=== PATIENT | male | born 1980 | race Caucasian/White ===

== ENCOUNTER 2016-10-02 10:30 | Emergency (ER) | payer OTHER ==
[2016-10-02 11:46] VITALS: BP 116/69
--- NOTE | 2016-10-02 12:00 | UC ---
Respiratory Complaint HPI - HPI Summary HPI Summary: COUGH / CHEST CONGESTION X 2 WEEKS, + NASAL CONGESTION, SOB NO FEVER, NO CHILLS - History of Current Complaint Chief Complaint: UCRespiratory Stated Complaint: RESPIRATORY COMPLAINT Time Seen by Provider: 10/02/16 11:40 Hx Obtained From: Patient Onset/Duration: Gradual Onset, Lasting Weeks - 2, Still Present Timing: Constant Severity Initially: Moderate Severity Currently: Moderate Character: Cough: Nonproductive Aggravating Factors: Exertion, Deep Breaths Alleviating Factors: Bronchodilator Associated Signs And Symptoms: Positive: Wheezing, URI, Nasal Congestion. Negative: Fever, Chills - Allergies/Home Medications Allergies/Adverse Reactions: Allergies Allergy/AdvReac Type Severity Reaction Status Date / Time Ciprofloxacin [From Cipro] Allergy Numbness Verified 10/02/16 11:46 And Tingling Sulfamethoxazole Allergy See Comment Verified 10/02/16 11:46 w/Trimethoprim [From Bactrim] PMH/Surg Hx/FS Hx/Imm Hx Previously Healthy: Yes - Surgical History Surgical History: None - Family History Known Family History: Positive: Hypertension - Social History Alcohol Use: Rare Substance Use Type: None Smoking Status (MU): Never Smoked Tobacco Review of Systems Constitutional: Negative Skin: Negative Eyes: Negative ENT: Nasal Discharge Respiratory: Shortness Of Breath, Cough Cardiovascular: Negative Gastrointestinal: Negative All Other Systems Reviewed And Are Negative: Yes Physical Exam Triage Information Reviewed: Yes Appearance: Well-Appearing, No Pain Distress, Well-Nourished Vital Signs: Initial Vital Signs Temp 98.8 F 10/02/16 11:44 Pulse 114 10/02/16 11:44 Resp 16 10/02/16 11:44 BP 116/69 10/02/16 11:44 Pulse Ox 98 10/02/16 11:44 Vital Signs Reviewed: Yes Eye Exam: Normal Eyes: Positive: Conjunctiva Clear ENT Exam: Normal ENT: Positive: Normal ENT inspection, Hearing grossly normal, Pharynx normal, Nasal congestion, Nasal drainage, TMs normal Neck exam: Normal Neck: Positive: Supple, Nontender, No Lymphadenopathy Respiratory: Positive: Chest non-tender, Lungs clear, Normal breath sounds Cardiovascular: Positive: RRR, No Murmur, Pulses Normal UC Diagnostic Evaluation - Laboratory O2 Sat by Pulse Oximetry: 98 Respiratory Course/Dx - Differential Dx/Diagnosis Provider Diagnoses: URI Discharge - Discharge Plan Condition: Stable Disposition: HOME Patient Education Materials: Upper Respiratory Infection (ED) Forms: *Work Release Referrals: Shiloh Joe MD [Primary Care Provider] - 7 Days
== END 2016-10-02 12:32 | disposition home or self-care (01) ==
LOC: UCCORT 10:30
DX: J06.9 Acute upper respiratory infection, unspecified (principal); R09.81 Nasal congestion; R06.2 Wheezing; Z88.2 Allergy status to sulfonamides; Z88.1 Allergy status to other antibiotic agents
CPT/HCPCS: 99211; G0463

== ENCOUNTER 2017-02-13 19:16 | Emergency (ER) | payer OTHER ==
[2017-02-13 20:16] VITALS: BP 111/76
--- NOTE | 2017-02-13 20:31 | UC ---
Respiratory Complaint HPI - HPI Summary HPI Summary: patient has hx of asthma, has been having SOB and cough for the past 3 days. - History of Current Complaint Chief Complaint: UCGeneralIllness Stated Complaint: COUGH/LOW GRADE FEVER Time Seen by Provider: 02/13/17 20:17 Hx Obtained From: Patient Onset/Duration: Sudden Onset, Lasting Days Timing: Constant Severity Initially: Mild Severity Currently: Moderate Aggravating Factors: Exertion, Deep Breaths, Recumbent Position Alleviating Factors: Nothing Associated Signs And Symptoms: Positive: Dyspnea, Fever, Wheezing, Nasal Congestion, Sinus Discomfort - Risk Factors Pulmonary Embolism Risk Factors: Negative Cardiac Risk Factors: Negative Pseudomonas Risk Factors: Negative - Allergies/Home Medications Allergies/Adverse Reactions: Allergies Allergy/AdvReac Type Severity Reaction Status Date / Time Ciprofloxacin [From Cipro] Allergy Numbness Verified 02/13/17 20:10 And Tingling Sulfamethoxazole Allergy See Comment Verified 02/13/17 20:10 w/Trimethoprim [From Bactrim] PMH/Surg Hx/FS Hx/Imm Hx Previously Healthy: Yes - Surgical History Surgical History: None - Family History Known Family History: Positive: Hypertension - Social History Alcohol Use: Rare Substance Use Type: None Smoking Status (MU): Never Smoked Tobacco Review of Systems Constitutional: Fever, Fatigue Skin: Negative Eyes: Negative ENT: Negative, Nasal Discharge Respiratory: Shortness Of Breath, Cough Cardiovascular: Negative Gastrointestinal: Negative Genitourinary: Negative Motor: Negative Neurovascular: Negative Musculoskeletal: Negative Neurological: Negative Psychological: Negative All Other Systems Reviewed And Are Negative: Yes Physical Exam Triage Information Reviewed: Yes Appearance: Well-Nourished, Ill-Appearing, Pain Distress Vital Signs: Initial Vital Signs Temp 99.1 F 02/13/17 20:11 Pulse 103 02/13/17 20:11 Resp 16 02/13/17 20:11 BP 111/76 02/13/17 20:11 Pulse Ox 99 02/13/17 20:11 Vital Signs Reviewed: Yes Eye Exam: Normal Eyes: Positive: Conjunctiva Clear ENT: Positive: Hearing grossly normal, Pharynx normal, Nasal congestion, TM bulging Dental Exam: Normal Neck exam: Normal Neck: Positive: Supple, Nontender, No Lymphadenopathy Respiratory: Positive: Decreased breath sounds - URL, Wheezing, Inspiration Cardiovascular Exam: Normal Cardiovascular: Positive: RRR, No Murmur, Pulses Normal Abdominal Exam: Normal Abdomen Description: Positive: Nontender, No Organomegaly, Soft Bowel Sounds: Positive: Present Musculoskeletal Exam: Normal Musculoskeletal: Positive: Strength Intact, ROM Intact, No Edema Neurological Exam: Normal Neurological: Positive: Alert, Muscle Tone Normal Psychological Exam: Normal Skin Exam: Normal UC Diagnostic Evaluation - Laboratory O2 Sat by Pulse Oximetry: 99 Respiratory Course/Dx - Course Course Of Treatment: hx obtained, exam performed, meds reviewed, chest xray obtained. patient uses a daily inhaler and albuterol as needed. - Differential Dx/Diagnosis Differential Diagnosis/HQI/PQRI: Asthma, Bronchitis, Lower Resp Infection, Sinusitis Provider Diagnoses: bronchitis. asthma Discharge - Discharge Plan Condition: Stable Disposition: HOME Patient Education Materials: Acute Bronchitis (ED) Additional Instructions: 1. Take the medication as prescribed. 2. Increase your fluid intake and get plenty of rest. 3. Follow up with any increase in symptoms.
[2017-02-13] MEDS ORDERED: predniSONE TAB* 20 MG PO ONE (20:41)
--- NOTE | 2017-02-13 21:10 | RAD ---
Indication: Shortness of breath. 2 views of the chest including dual energy PA views demonstrate no mediastinal shift. Heart is of normal size and configuration. Lung rucker demonstrate no pleural fluid, pneumonia or pneumothorax. IMPRESSION: No active cardiopulmonary disease is noted.
== END 2017-02-13 21:35 | disposition home or self-care (01) ==
LOC: UCCORT 19:16
DX: J45.909 Unspecified asthma, uncomplicated (principal); R50.9 Fever, unspecified; R09.81 Nasal congestion; Z88.1 Allergy status to other antibiotic agents; Z88.2 Allergy status to sulfonamides
CPT/HCPCS: 71020; 99212; G0463; J7512

== ENCOUNTER 2017-11-19 17:17 | Emergency (ER) | payer OTHER | END 2017-11-19 19:39 | disposition left against medical advice (07) | LOC: UCCORT 17:17 | DX: R05 Cough (principal); R11.11 Vomiting without nausea; Z53.21 Procedure and treatment not carried out due to patient leaving prior to being seen by health care provider ==

== ENCOUNTER 2017-11-19 20:06 | Emergency (ER) | payer OTHER ==
[2017-11-19 21:22] VITALS: BP 111/63
[2017-11-19] MEDS ORDERED: Ondansetron ODT TAB* 4 MG PO ONE (21:59)
[2017-11-19] MEDS ORDERED: Oseltamivir CAP* 75 MG CAP PO ONE (22:00)
--- NOTE | 2017-11-19 22:09 | UC ---
UC General HPI - HPI Summary HPI Summary: pt is c/o cough, n/v, fever and bodyaches for a day. denies sob, cp, diarrhea and dysuria - History of Current Complaint Hx Obtained From: Patient, Family/Paraeducator Onset/Duration: Gradual Onset Timing: Constant Pain Intensity: 5 Associated Signs & Symptoms: Positive: Cough, Fever, Headache, Nausea, Vomiting. Negative: Abdominal Pain, Chest Pain, Diarrhea, Dysuria, SOB, Wheezing <Kayley Pagan - Last Filed: 11/19/17 22:24> <Zoraida Alanis - Last Filed: 11/20/17 06:56> - History of Current Complaint Chief Complaint: UCRespiratory Stated Complaint: COUGH/VOMITING Time Seen by Provider: 11/19/17 21:55 - Allergy/Home Medications Allergies/Adverse Reactions: Allergies Allergy/AdvReac Type Severity Reaction Status Date / Time ciprofloxacin [From Cipro] Allergy Numbness Verified 11/19/17 21:24 Sulfa (Sulfonamide Allergy See Comment Verified 11/19/17 21:24 Antibiotics) Home Medications: Home Medications Albuterol HFA INHALER* [Ventolin HFA Inhaler*] 1 puff INH Q4H PRN 11/19/17 [ History Confirmed 11/19/17] Tiotropium CAP.INH* [Spiriva CAP.INH*] 1 cap.inh INH DAILY 11/19/17 [History Confirmed 11/19/17] PMH/Surg Hx/FS Hx/Imm Hx Respiratory History: Asthma - Surgical History Surgical History: None - Family History Known Family History: Positive: Hypertension - Social History Lives: With Family Alcohol Use: Rare Substance Use Type: None Smoking Status (MU): Never Smoked Tobacco - Immunization History Vaccination Up to Date: Yes <Kayley Pagan - Last Filed: 11/19/17 22:24> Review of Systems Constitutional: Fever Respiratory: Cough Gastrointestinal: Vomiting, Nausea Musculoskeletal: Myalgia Neurological: Headache Is Patient Immunocompromised?: No All Other Systems Reviewed And Are Negative: Yes <Kayley Pagan - Last Filed: 11/19/17 22:24> Physical Exam Triage Information Reviewed: Yes Appearance: Ill-Appearing Vital Signs: Initial Vital Signs Temp 100.6 F 11/19/17 21:20 Pulse 117 11/19/17 21:20 Resp 18 11/19/17 21:20 BP 111/63 11/19/17 21:20 Pulse Ox 100 11/19/17 21:20 Vital Signs Reviewed: Yes Eye Exam: Normal ENT: Positive: Pharynx normal, TMs normal. Negative: Nasal congestion, Nasal drainage Neck: Positive: Supple, Nontender, No Lymphadenopathy Respiratory: Positive: Lungs clear, Normal breath sounds, No respiratory distress Cardiovascular: Positive: No Murmur, Pulses Normal, Tachycardia Abdomen Description: Positive: Nontender, No Organomegaly, Soft. Negative: Distended, Guarding Bowel Sounds: Positive: Hyperactive Neurological Exam: Normal Psychological Exam: Normal Skin Exam: Normal <Kayley Pagan - Last Filed: 11/19/17 22:24> Vital Signs: Initial Vital Signs Temp 100.6 F 11/19/17 21:20 Pulse 117 11/19/17 21:20 Resp 18 11/19/17 21:20 BP 111/63 11/19/17 21:20 Pulse Ox 100 11/19/17 21:20 <Zoraida Alanis - Last Filed: 11/20/17 06:56> Diagnostics - Laboratory Diagnostic Studies Completed/Ordered: Influenza A + <Kayley Pagan - Last Filed: 11/19/17 22:24> Re-Evaluation - Re-Evaluation First Eval Re-Evaluation Time: 22:12 - pt is taking po fluids with no vomiting here. <Kayley Pagan - Last Filed: 11/19/17 22:24> Course/Dx - Course Course Of Treatment: non toxic. Influenza A +. Tx zofran here for nausea. 1st dose tamiflu given. - Differential Dx - Multi-Symptom Provider Diagnoses: Influenza A <Kayley Pagan - Last Filed: 11/19/17 22:24> Discharge <Kayley Pagan - Last Filed: 11/19/17 22:24> <Zoraida Alanis - Last Filed: 11/20/17 06:56> - Discharge Plan Condition: Stable Disposition: HOME Prescriptions: Oseltamivir Phosphate [Tamiflu] 75 mg PO BID 5 Days #10 capsule Patient Education Materials: Influenza (ED) Forms: *Work Release Referrals: Shiloh Joe MD [Primary Care Provider] - 5 Days Attestation Statement User Type: Provider - I was available for consult. This patient was seen by the DARLENE. The patient was not presented to, seen by, or examined by me. Cedric <Zoraida Alanis - Last Filed: 11/20/17 06:56>
== END 2017-11-19 22:16 | disposition home or self-care (01) ==
LOC: UCCORT 20:06
DX: J10.1 Influenza due to other identified influenza virus with other respiratory manifestations (principal); J45.909 Unspecified asthma, uncomplicated
CPT/HCPCS: 87502; 99212; A9270-GY; G0463

== ENCOUNTER 2017-12-26 07:58 | Emergency (ER) | payer OTHER ==
--- NOTE | 2017-12-26 08:08 | UC ---
Upper Extremity HPI - HPI Summary HPI Summary: 37 year old male with elbow pain. Right elbow pain onset last night radiates to forearm; increased pain with ROM. Numbness in fingers 3,4,5. No injury but pt has job that requires repetitive motion; also pt has been doing wood working with pallets (6) last few days. pain starts at elbow , radiates in to the hand. apin with movement. no trauma. no weakness. no previous Surgery. no shoulder or neck pain [ End ] - History of Current Complaint Stated Complaint: ELBOW PAIN Time Seen by Provider: 12/26/17 08:07 Hx Obtained From: Patient Onset/Duration: Gradual Onset Severity Initially: Mild Severity Currently: Moderate Aggravating Factor(s): Movement Alleviating Factor(s): Rest Associated Signs And Symptoms: Positive: Numbness/Tingling Related History: Similar Episode/Dx As - Allergies/Home Medications Allergies/Adverse Reactions: Allergies Allergy/AdvReac Type Severity Reaction Status Date / Time ciprofloxacin [From Cipro] Allergy Numbness Verified 12/26/17 08:17 Sulfa (Sulfonamide Allergy See Comment Verified 12/26/17 08:17 Antibiotics) Home Medications: Home Medications Acetaminophen [Tylenol Extra Strength] 1,000 mg PO ONCE PRN 12/26/17 [History Confirmed 12/26/17] PMH/Surg Hx/FS Hx/Imm Hx Previously Healthy: Yes - Surgical History Surgical History: None - Family History Known Family History: Positive: Hypertension, Other - mom with carpal tunnel - Social History Occupation: Employed Full-time Lives: With Family Alcohol Use: Rare Substance Use Type: None Smoking Status (MU): Never Smoked Tobacco - Immunization History Vaccination Up to Date: Yes Review of Systems Musculoskeletal: Arthralgia, Decreased ROM Is Patient Immunocompromised?: No All Other Systems Reviewed And Are Negative: Yes Physical Exam Triage Information Reviewed: Yes Appearance: Well-Appearing, No Pain Distress, Well-Nourished Vital Signs Reviewed: Yes Eyes: Positive: Conjunctiva Clear ENT: Positive: Normal ENT inspection Respiratory Exam: Normal Cardiovascular Exam: Normal Musculoskeletal: Positive: ROM Limited @ - pain at elbow with movement / extension . can move just uncomfortable. strength 5/5, sensation intact. tenderness to right elbow diffusely , medial and lateral elbow. mild swelling present. skin intact. no bruising. no redness. wrist movement normal but causes elbow tenderness. shoulder exam shows no abnormality Upper Extremity Course/Dx - Course Course Of Treatment: avoid repetitive motion. use cock up wrist splint and tennis elbow brace. start medrol and if sx persist or worsen go to ED or Ortho he is agreeable to plan - Differential Dx/Diagnosis Differential Diagnosis/HQI/PQRI: Bursitis, Contusion, Fracture (Closed), Strain , Sprain Provider Diagnoses: right elbow / cubital tunnel sundrome Discharge - Sign-Out/Discharge Documenting (check all that apply): Discharge - Discharge Plan Condition: Good Disposition: HOME Prescriptions: methylPREDNISolone [Medrol Dosepak 4 MG*] 0 mg PO .SEE CARLY INSTRUCTION #1 tab Patient Education Materials: Cubital Tunnel Syndrome (ED) Referrals: Shiloh Joe MD [Primary Care Provider] - Jose George MD [Medical Doctor] - If Needed (Ortho referral if needed ) Additional Instructions: Consider Tennis elbow brace and night time cock up wrist splint. Please refrain from repetitive motion that irritates the arm - Billing Disposition and Condition Condition: GOOD Disposition: HOME
--- OUTSIDE RECORDS SUMMARY | 2017-12-26 08:13 | XMS REPORT ---
:1980 External Reference #:[id number] Author Organization [facility] Address [address], [address] [place] [address] Phone [phone] Care Team Providers Name Role Phone Shiloh Joe M.D. Care Team Information Base Brander Unavailable Shiloh Joe M.D. Primary Care Physician Unavailable Payers Type Date Identification Numbers Payment Provider Subscriber Commercial Policy Number: [id number] [facility] Bora Miranda PayID: [id number] [address] [place] [address] Problems Date Description Provider Status Onset: 04/12/2016 Gastroesophageal reflux disease Shiloh Joe M.D. Active Onset: 11/03/2015 Mild intermittent asthma, uncomplicated Shiloh Joe M.D. Active Onset: 11/03/2015 Joint pain Shiloh Joe M.D. 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 ADL's/IADL's Independent with all ADL's ETOH Use Drinks Alcoholic Beverages Rarely Smoking Patient has never smoked Daily Caffeine Patient consumes minimal amounts of caffeine 1-2 cups daily Allergies, Adverse Reactions, Alerts Date Description Reaction Status Severity Comments 11/03/2015 Bactrim SJS active 11/03/2015 Fentanyl Nausea and Vomiting active 11/24/2015 Cipro numbness in hands and face active 12/13/2015 Gabapentin Urticaria active 12/13/2015 Zoloft Contact dermatitis active 12/13/2015 Demerol Nausea and Vomiting active Medications Medication Date Status Form Strength Qnty SIG Indications Ordering Provider Famotidine 05/14 Active Tablets 40mg 30tab Take One K21.9 Shiloh Joe s Tablet By M.D. Mouth Every Day Ventolin HFA Active Aerosol 108(90Bas 18gm 1-2 puffs Shiloh Joe, / e) every 4-6 M.D. mcg/Act hours as needed Spiriva Active Aerosol 1.25mcg/A Inhale Two Unknown Respimat /0000 ct Puffs By Mouth Daily Famotidine 02/19 Hx Tablets 20mg 1 by mouth K21.9 Shiloh bid M.D. - 05/14 Azithromycin 02/19 Hx Tablets 250mg 6tabs 1 tab take 2 J20.9 Shiloh Mathur tabs x daily M.D. - days then 1 11/13 for 4 days /2017 Guaifenesin 02/19 Hx Tablets 400mg 30tab 1 tab by J20.9 Shiloh Mathur s mouth every M.D. - 6 hours as 11/13 needed /2017 Pulmicort 10/16 Hx Aerosol 90mcg/Act 1unit inhale one J45.30 Yazan Orlando s puff by MD - mouth twice 02/19 a day. Rinse mouth after use. Azithromycin 09/04 Hx Tablets 250mg 6tabs take 2 J06.9 Shiloh tablets by M.D. - mouth one 09/25 time for infection then take 1 tablet by mouth daily for 4 days for infection Prednisone 09/04 Hx Tablets 20mg 10tab take 2 J06.9 Shiloh s tablet by M.D. - mouth daily 09/25 for 5 days for acute asthma exacerbation Prednisone 02/12 Hx Tablets 20mg 10tab 1 by mouth M65.831 Deana s twice daily SANTIAGO PintoP - x 5 days 02/17 Meloxicam 11/24 Hx Tablets 7.5mg 30tab 1-2 tab by M25.50 Shiloh , s mouth every M.D. - day as 11/24 needed for pain Tramadol HCL 11/24 Hx Tablets 50mg 45tab take one M25.50 Shiloh s tablet by M.D. - mouth every 09/04 12 hours as needed for severe pain. Reference #: [id number] Naproxen 11/24 Hx Tablets 500mg 60tab 1 by mouth M25.50 Shiloh Tatyana, s twice a day M.D. - with food 09/04 prn pain Famotidine Hx Tablets 40mg 30tab 1 by mouth K21.9 Shiloh Tatyana, / s every day M.D. - 02/19 Naproxen Hx Tablets 500mg 60tab 1 by mouth Shiloh Mathurn, / s twice a day M.D. - with food 11/24 Adrenal Hx 1 po bid Unknown Support / - 02/19 Prednisone Hx Tablets 20mg Take Two Unknown /0000 Tablets By - Mouth Every Vital Signs Date Vital Result Comment 12/12/2017 BP Systolic 118 mmHg BP Diastolic 72 mmHg Heart Rate 124 /min Height 72 inches 6'0" Weight 192.00 lb BMI (Body Mass Index) 26.0 kg/m2 BSA (Body Surface Area) 2.09 m2 [place] body weight in kilograms 81 O2 % BldC Oximetry 97 % 11/13/2017 BP Systolic Sitting Left Arm 122 mmHg BP Diastolic Sitting Left Arm 72 mmHg Heart Rate 76 /min Respiratory Rate 18 /min Height 72 inches 6'0" Weight 198.38 lb BMI (Body Mass Index) 26.9 kg/m2 BSA (Body Surface Area) 2.12 m2 [place] body weight in kilograms 81 02/19/2017 BP Systolic Sitting Left Arm 118 mmHg BP Diastolic Sitting Left Arm 64 mmHg Body Temperature 97.1 F Heart Rate 82 /min Respiratory Rate 12 /min Height 72 inches 6'0" Weight 198.00 lb BMI (Body Mass Index) 26.9 kg/m2 BSA (Body Surface Area) 2.12 m2 [place] body weight in kilograms 81 O2 % BldC Oximetry 98 % 10/16/2016 BP Systolic Sitting Right Arm 130 mmHg BP Diastolic Sitting Right Arm 90 mmHg Heart Rate 108 /min Respiratory Rate 18 /min Height 72 inches 6'0" Weight 200.00 lb BMI (Body Mass Index) 27.1 kg/m2 BSA (Body Surface Area) 2.13 m2 [place] body weight in kilograms 81 O2 % BldC Oximetry 97 % 09/25/2016 BP Systolic Sitting Right Arm 118 mmHg BP Diastolic Sitting Right Arm 74 mmHg Body Temperature 98.2 F Heart Rate 110 /min Respiratory Rate 16 /min Height 72 inches 6'0" Weight 201.25 lb BMI (Body Mass Index) 27.3 kg/m2 BSA (Body Surface Area) 2.14 m2 09/04/2016 BP Systolic 118 mmHg BP Diastolic 88 mmHg Body Temperature 97.9 F Heart Rate 99 /min Respiratory Rate 16 /min Height 72 inches 6'0" Weight 201.00 lb BMI (Body Mass Index) 27.3 kg/m2 BSA (Body Surface Area) 2.14 m2 [place] body weight in kilograms 81 O2 % BldC Oximetry 99 % 04/12/2016 BP Systolic Sitting Left Arm 108 mmHg BP Diastolic Sitting Left Arm 62 mmHg Height 72 inches 6'0" Weight 191.00 lb BMI (Body Mass Index) 25.9 kg/m2 BSA (Body Surface Area) 2.09 m2 02/13/2016 BP Systolic 104 mmHg BP Diastolic 64 mmHg Height 72 inches 6'0" Weight 195.38 lb BMI (Body Mass Index) 26.5 kg/m2 BSA (Body Surface Area) 2.11 m2 01/04/2016 BP Systolic 140 mmHg BP Diastolic 80 mmHg Heart Rate 88 /min Respiratory Rate 21 /min Weight 188.38 lb 11/24/2015 BP Systolic 118 mmHg BP Diastolic 76 mmHg Height 72 inches 6'0" Weight 191.00 lb BMI (Body Mass Index) 25.9 kg/m2 BSA (Body Surface Area) 2.09 m2 11/03/2015 BP Systolic 124 mmHg BP Diastolic 76 mmHg Heart Rate 100 /min Respiratory Rate 18 /min Height 72 inches 6'0" Weight 193.25 lb BMI (Body Mass Index) 26.2 kg/m2 BSA (Body Surface Area) 2.10 m2 Results Test Date Test Result H/L Range Note Rapid Influenza A & 11/19/2017 Influenza A Molecular POSITIVE Negative 1 B Molecular Influenza B Molecular NEGATIVE Negative Allergens,Zone 1 10/16/2016 mRast Class (Text Only) (SEE NOTE) 2, 3 D Pteronyssinus <0.10 kU/L Class 0 2 D Farinae Mite <0.10 kU/L Class 0 2 Cat Hair/Dander <0.10 kU/L Class 0 2 Dog Hair/Dander <0.10 kU/L Class 0 2 Bluegrass,[place] <0.10 kU/L Class 0 2 Bermuda Grass <0.10 kU/L Class 0 2 Bahia Grass <0.10 kU/L Class 0 2 Cockroach,Argentine <0.10 kU/L Class 0 2 Penicillium Not <0.10 kU/L Class 0 2 Cladosporium Herbarum <0.10 kU/L Class 0 2 Apergillis Fumigatus Ige <0.10 kU/L Class 0 2 Mucor Racemosus <0.10 kU/L Class 0 2 Alternaria Alternata <0.10 kU/L Class 0 2 Stemphylium Bot <0.10 kU/L Class 0 2 Birch,White <0.10 kU/L Class 0 2 Sa[place]bury,White <0.10 kU/L Class 0 2 Elm,Argentine (White) <0.10 kU/L Class 0 2 Eliezer,White <0.10 kU/L Class 0 2 Hazelnut Tree T004 Ige <0.10 kU/L Class 0 2 Mcintosh,White <0.10 kU/L Class 0 2 Divernon,White <0.10 kU/L Class 0 2 Fair [place]aks,[place]ountain <0.10 kU/L Class 0 2 Ragweed,Short/ <0.10 kU/L Class 0 2 Mugwort <0.10 kU/L Class 0 2 Plantain,Nepalese <0.10 kU/L Class 0 2 Pigweed,Rough <0.10 kU/L Class 0 2 Sheep [place] (DO <0.10 kU/L Class 0 2 Nettle <0.10 kU/L Class 0 2 Maple/[place] Ige T001 <0.10 kU/L Class 0 2, 4 Laboratory test finding 10/16/2016 Immunoglobulin E,Total 76 IU/mL 0-100 2, 5 CBS W/Automated Diff 10/16/2016 White Blood Count 8.8 K/uL 3.4-10.5 2 Red Blood Count 5.59 M/uL 4.20-5.80 2 Hemoglobin 16.0 gm/dL 12.8-17.0 2 Hematocrit 46.8 % 38.0-48.0 2 Mean Cell Volume 83.7 fl 80.0-96.0 2 Mean Corpuscular HGB 28.6 pg 27.0-33.0 2 Mean Corpuscular HGB Conc 34.2 g/dL 31.7-36.0 2 Platelet Count 292 K/uL 150-400 2 Red Cell Distri Width SD 39.9 fl 36-51 2 Red Cell Distri Width %CV 13.0 % 11.6-15.8 2 Mean Platelet Volume 12.4 fL High 6.6-10.6 2 Neut% 63.7 % 33.0-73.0 2 Lymph % 26.2 % 20.0-42.0 2 Gray % 6.2 % 0.0-10.0 2 Eo% 3.1 % 0.0-5.0 2 Bas% 0.8 % 0.1-1.0 2 Neut# 5.62 K/uL 1.8-7.0 2 Lymph # 2.31 K/uL 1.0-4.0 2 Gray # 0.55 K/uL 0.0-0.8 2 Eos # 0.27 K/uL 0.0-0.5 2 Baso # 0.07 K/uL Low 0.1-0.2 2 Basic Metabolic Panel 10/16/2016 Glucose 100 mg/dL 74-106 2 BUN 10 mg/dL 7-18 2 Creatinine 1.2 mg/dL 0.6-1.3 2 Glom Filtration Rate, Estimate >60 mL/min >60 2 If >60 mL/min >60 2, 6 BUN/Creat 8.3 ratio 2 Sodium 143 mmol/L 136-145 2 Potassium 4.2 mmol/L 3.5-5.1 2 Chloride 107 mmol/L 98-107 2 Carbon Dioxide 30 mmol/L 21-32 2 Anion Gap 6 mEq/L Low 8-16 2 Calcium 9.2 mg/dL 8.5-10.1 2 1 Machinist Linotype: [id number] 2 J45.30 3 Levels of Specific IgE Class Description of Class ----- < 0.10 0 Negative 0.10 - 0.31 0/I Equivocal/Low 0.32 - 0.55 I Low 0.56 - 1.40 II Moderate 1.41 - 3.90 III High 3.91 - 19.00 IV Very High 19.01 - 100.00 V Very High >100.00 Very High 4 Performed at: - [address] [id number] Online Marketing Manager: Phillip Mims MD, Phone: [phone] Performed at: [facility] [address] [id number] Online Marketing Manager: Vikki Cuenca MD, Phone: [phone] Test(s) [id number] Cockroach, Argentine; 403352- J786-WkH Briana Mascorro were developed and had performance characteristics determined by [facility]. These tests have not been cleared or approved by the U.S. Food and Drug Administration. The FDA has determined that such clearance or approval is not necessary. These tests are used for clinical purposes. These should not be regarded as investigational or for research. 6 Note: Persistent reduction for 3 months or more in an eGFR <60 mL/min/1.73 m2 defines CKD. Patients with eGFR values >/=60 mL/min/1.73 m2 may also have CKD if evidence of persistent proteinuria is present. The original MDRD equation for estimated GFR is not valid for patients less than 18 years of age. Additional information may be found at www.kdoqi.org. Procedures Date CPT Code Description Status Comment 09/04/2016 04233 Pulse Oximetry Completed 04/12/2016 36393 EKG-Tracing And Report Completed 09/30/2014 Colonoscopy Completed Bautista, 2024 Encounters Type Date Location Provider CPT E/M Dx Office Visit 11/13/2017 [facility] TIFFANIE Frankel 15047 E16.2 10:00a Office Visit 02/19/2017 [facility] Shiloh Joe M.D. 91672 J20.9 1:30p Office Visit 10/16/2016 [place] [address] J45.30 2:00p Office Visit 09/25/2016 [facility] Fabiola Montoya, 33853 R05 10:00a COMPUTER SUPPORT TECHNICIAN-C Office Visit 09/04/2016 [facility] Fabiola Montoya, 21621 J06.9 8:30a COMPUTER SUPPORT TECHNICIAN-C Office Visit 04/12/2016 [facility] Shiloh Joe M.D. 04688 M25.569 11:00a L51.1 K21.9 J45.20 Office Visit 02/13/2016 10:30a [facility] Deana Adornobenjy, [facility] 23337 M65.831 Office Visit 01/04/2016 4:45p [facility] Shiloh Joe M.D. 59053 L24.89 Office Visit 11/24/2015 10:45a [facility] Shiloh Joe M.D. 89292 M25.50 M79.1 R53.83 Office Visit 11/03/2015 9:15a [facility] Shiloh Joe M.D. 66078 Z00.01 R53.83 M25.50 J45.20 Plan of Care 12/12/2017 - Shiloh Joe M.D.Z00.00 Encntr for general adult medical exam w/o abnormal findingsComments:Normal PE, no acute findingEat a healthy balanced diet and exercise regularlyImmunizations declined pneumovax and tetanus boosterwill check screening blood work todayAdvised to go to dentist for preventative care, continue seeing eye [id number] Encounter for screening for cardiovascular disordersNew Labs:Comprehensive Metabolic PanelLDL Cholesterol GkscbhbW01.32 Left lower quadrant painComments:Normal exam, pain has resolved, will monitor
[2017-12-26 08:27] VITALS: BP 116/78
== END 2017-12-26 09:14 | disposition home or self-care (01) ==
LOC: UCCORT 07:58
DX: G56.21 Lesion of ulnar nerve, right upper limb (principal); Z88.3 Allergy status to other anti-infective agents; Z88.2 Allergy status to sulfonamides
CPT/HCPCS: 99213; G0463

== ENCOUNTER 2019-04-28 15:33 | Emergency (ER) | payer OTHER ==
[2019-04-28 16:05] VITALS: BP 104/72
--- NOTE | 2019-04-28 16:22 | UC ---
General HPI - HPI Summary HPI Summary: PT IS C/O A 10 DAY HX OF FATIGUE AND GENERALIZED JOINT PAIN. HE DENIES SWELLING TO JOINTS AND FEVER. NO HX OF ARTHRITIS. HE WAS BITTEN BY A TICK 2 MONTHS AGO AND HAS CONCERN FOR LYME DISEASE. HE IS ALSO C/O 4 DAYS HX OF COUGH WITH CONGESTION AND WHEEZING. + HX ASTHMA. USING HIS INHALER BUT IT LAST FOR ONLY A FEW HOURS. NO FEVER OR CHEST PAIN. lAST COMPLAINT OF A RASH ON r WRIST YESTERDAY THAT BLISTERED TODAY. PT WAS GARDENING PRIOR TO THE RASH. - History of Current Complaint Chief Complaint: UCGeneralIllness Stated Complaint: TICK,COUGH,SKIN COMPLAINT Time Seen by Provider: 04/28/19 15:54 Hx Obtained From: Patient Onset/Duration: Gradual Onset Timing: Constant Pain Intensity: 4 - Allergy/Home Medications Allergies/Adverse Reactions: Allergies Allergy/AdvReac Type Severity Reaction Status Date / Time amoxicillin Allergy Unknown numbness Verified 04/28/19 15:56 of hands and feet ciprofloxacin [From Cipro] Allergy Numbness Verified 04/28/19 15:55 Sulfa (Sulfonamide Allergy See Comment Verified 04/28/19 15:55 Antibiotics) Home Medications: Home Medications Ibuprofen TAB* [Advil TAB*] 200 mg PO Q6H PRN 04/28/19 [History Confirmed ] PMH/Surg Hx/FS Hx/Imm Hx - Additional Past Medical History Additional PMH: PACHECO KYRA SYNDROME Respiratory History: Asthma - Surgical History Surgical History: Yes Surgery Procedure, Year, and Place: TONSILLECTOMY 2018 - Family History Known Family History: Positive: Hypertension, Other - mom with carpal tunnel - Social History Lives: With Family Alcohol Use: Rare Substance Use Type: None Smoking Status (MU): Never Smoked Tobacco - Immunization History Vaccination Up to Date: Yes Review of Systems All Other Systems Reviewed And Are Negative: Yes Constitutional: Positive: Fatigue. Negative: Fever, Chills Skin: Positive: Rash - R wrist ENT: Negative: Sore Throat, Ear Ache, Nasal Discharge Respiratory: Positive: Shortness Of Breath, Cough Cardiovascular: Negative: Palpitations, Chest Pain Musculoskeletal: Positive: Arthralgia. Negative: Decreased ROM, Edema Physical Exam Triage Information Reviewed: Yes Appearance: Well-Appearing Vital Signs: Initial Vital Signs Temp 98.8 F 04/28/19 15:57 Pulse 95 04/28/19 15:57 Resp 16 04/28/19 15:57 BP 104/72 04/28/19 15:57 Pulse Ox 100 04/28/19 15:57 Vital Signs Reviewed: Yes Eyes: Positive: Conjunctiva Clear ENT: Positive: Pharynx normal, TMs normal. Negative: Nasal congestion Neck: Positive: Supple, Nontender, No Lymphadenopathy Respiratory: Positive: Lungs clear, No respiratory distress, Decreased breath sounds - slight. Negative: Crackles, Rhonchi, Wheezing Cardiovascular: Positive: RRR, No Murmur Abdomen Description: Positive: Nontender Musculoskeletal: Positive: ROM Intact, No Edema Neurological: Positive: Alert Psychological: Positive: Age Appropriate Behavior Skin Exam: Normal Skin: Positive: Rashes - Linear vesicular cluster R wrist. Course/Dx - Differential Dx - Multi-Symptom Differential Diagnoses: Other - will check lyme titier give hx tick bite and fatigue plus joint pain. no concern for pneumonia, asthma flare. rash c/w contact dermatitis, very local thus will tx with topical steroid. - Diagnoses Provider Diagnosis: Asthma, Contact dermatitis, Arthralgia, Fatigue Discharge - Sign-Out/Discharge Documenting (check all that apply): Patient Departure All imaging exams completed and their final reports reviewed: No Studies - Discharge Plan Condition: Stable Disposition: HOME Prescriptions: predniSONE [Prednisone 20 MG TAB] 40 mg PO DAILY 5 Days #10 tablet Triamcinolone 0.1% CREAM(NF) [Kenalog 0.1% Cream (NF)] 1 applic TOPICAL BID 7 Days #1 applic Patient Education Materials: Asthma (ED), Lyme Disease (ED), Contact Dermatitis (DC) Referrals: Shiloh Joe MD [Medical Doctor] - 7 Days Additional Instructions: USE YOUR RESCUE INHALER 2 PUFFS EVERY 6 HOURS. - Billing Disposition and Condition Condition: STABLE Disposition: Home - Attestation Statements Provider Attestation: Per institutional requirements, I have reviewed the chart, however, I was not consulted specifically or made aware of this patient by the midlevel provider. I did not personally evaluate, interact with , or disposition this patient.
== END 2019-04-28 16:51 | disposition home or self-care (01) ==
LOC: UCCORT 15:33
DX: J45.909 Unspecified asthma, uncomplicated (principal); L25.9 Unspecified contact dermatitis, unspecified cause; M25.50 Pain in unspecified joint; R53.83 Other fatigue; Z88.0 Allergy status to penicillin; Z88.1 Allergy status to other antibiotic agents; Z88.2 Allergy status to sulfonamides
CPT/HCPCS: 36415; 86618; 99212; G0463

== ENCOUNTER 2019-06-17 15:51 | Emergency (ER) | payer OTHER ==
[2019-06-17 16:26] VITALS: BP 128/62
--- NOTE | 2019-06-17 16:51 | UC ---
Throat Pain/Nasal Lars HPI - HPI Summary HPI Summary: 38-year-old male comes in with a chief complaint of upper respiratory tract infection symptoms for 2 days. He has green rhinorrhea and postnasal drip sore throat. Does have a history of asthma he is not needed to use his albuterol inhaler more frequently. Cough makes his sore throat worse. - History of Current Complaint Chief Complaint: UCRespiratory Stated Complaint: COUGH, CONGESTION Time Seen by Provider: 06/17/19 16:39 Pain Intensity: 0 - Allergies/Home Medications Allergies/Adverse Reactions: Allergies Allergy/AdvReac Type Severity Reaction Status Date / Time amoxicillin Allergy Unknown numbness Verified 06/17/19 16:22 of hands and feet ciprofloxacin [From Cipro] Allergy Numbness Verified 06/17/19 16:22 Sulfa (Sulfonamide Allergy See Comment Verified 06/17/19 16:22 Antibiotics) PMH/Surg Hx/FS Hx/Imm Hx Previously Healthy: Yes Respiratory History: Asthma - Surgical History Surgical History: Yes Surgery Procedure, Year, and Place: Tonsillectomy, [facility] [place] [facility] - Family History Known Family History: Positive: Hypertension, Other - mom with carpal tunnel - Social History Alcohol Use: Occasionally Substance Use Type: None Smoking Status (MU): Never Smoked Tobacco - Immunization History Vaccination Up to Date: Yes Review of Systems All Other Systems Reviewed And Are Negative: Yes Constitutional: Positive: Negative Skin: Positive: Negative Eyes: Positive: Negative ENT: Positive: Sore Throat, Nasal Discharge, Sinus Congestion Respiratory: Positive: Negative Cardiovascular: Positive: Negative Gastrointestinal: Positive: Negative Motor: Positive: Negative Neurovascular: Positive: Negative Musculoskeletal: Positive: Negative Neurological: Positive: Negative Psychological: Positive: Negative Is Patient Immunocompromised?: No Physical Exam Triage Information Reviewed: Yes Appearance: No Pain Distress, Well-Nourished, Ill-Appearing - MILD Vital Signs: Initial Vital Signs Temp 99.2 F 06/17/19 16:21 Pulse 98 06/17/19 16:21 Resp 18 06/17/19 16:21 BP 128/62 06/17/19 16:21 Pulse Ox 100 06/17/19 16:21 Vital Signs Reviewed: Yes Eye Exam: Normal Eyes: Positive: Conjunctiva Clear ENT: Positive: Pharyngeal erythema, Nasal congestion, Nasal drainage, TMs normal Neck: Positive: Supple Respiratory: Positive: Lungs clear, Normal breath sounds, No respiratory distress Cardiovascular: Positive: RRR Musculoskeletal: Positive: Strength Intact, ROM Intact Neurological: Positive: Alert, Muscle Tone Normal Psychological: Positive: Age Appropriate Behavior Skin Exam: Normal Throat Pain/Nasal Course/Dx - Course Course Of Treatment: DISCUSSED VIRAL VERSES BACTERIAL INFECTION AND THE ROLE OF ANTIBIOTICS. PATIENT PREFERS TO BE ON ANTIBIOTICS AT THIS TIME. - Differential Dx/Diagnosis Provider Diagnosis: Upper respiratory infection Discharge ED - Sign-Out/Discharge Documenting (check all that apply): Patient Departure All imaging exams completed and their final reports reviewed: No Studies - Discharge Plan Condition: Stable Disposition: HOME Prescriptions: Azithromyxin CARLY (NF) [Z-Carly (Zithromax) 250 mg tabs #6] 2 tab PO .TODAY, THEN 1 DAILY #6 tab Patient Education Materials: Upper Respiratory Infection (ED) Forms: *Work Release Referrals: Elba Dejesus NP [Primary Care Provider] - Additional Instructions: FOLLOW UP WITH YOUR DOCTOR IF NOT COMPLETELY IMPROVED. GET REEVALUATED SOONER IF WORSE OR ANY QUESTIONS OR CONCERNS. - Billing Disposition and Condition Condition: STABLE Disposition: Home
== END 2019-06-17 16:56 | disposition home or self-care (01) ==
LOC: UCCORT 15:51
DX: J06.9 Acute upper respiratory infection, unspecified (principal); J45.909 Unspecified asthma, uncomplicated; Z88.2 Allergy status to sulfonamides
CPT/HCPCS: 99212; G0463